=== PATIENT | female | born 1980 | race Caucasian/White ===

== ENCOUNTER 2016-12-03 21:15 | Outpatient (CLI) | payer MEDICAID ==
[~2016-12-03] VITALS: Ht 152.4 cm; Wt 47.1 kg
[~2016-12-03 21:15] MED LIST: FERR-55 PO; PREN-39 PO; PREN1TAB31 PO
[2016-12-03 21:33] VITALS: BP 102/58; PULSE 82; Ht 152.4 cm; Wt 47.1 kg
[2016-12-03 22:42] LABS: ADD UMIC NO; UR ASCORBIC ACID NEGATIVE (NEGATIVE); UR BILIRUBIN (Dip) NEGATIVE (NEGATIVE); UR BLOOD (Dip) NEGATIVE (NEGATIVE); UR CLARITY CLEAR (CLEAR); UR COLOR STRAW (YELLOW); UR GLUCOSE (Dip) NEGATIVE (NEGATIVE); UR KETONES (Dip) 2+ mg/dL (NEGATIVE); UR LEUKOCYTE ESTERASE (Dip) NEGATIVE Leu/ul (NEGATIVE); UR NITRITE (Dip) NEGATIVE (NEGATIVE); UR SPECIFIC GRAVITY (Dip) 1.005 (1.003-1.030); UR TOTAL PROTEIN (Dip) NEGATIVE (NEGATIVE); UR UROBILINOGEN (Dip) NEGATIVE (NEGATIVE)
[2016-12-03] MEDS ORDERED: ACETAMINOPHEN 500 MG TAB PO ONE (23:03)
[2016-12-03 23:20] LABS: BASOPHILS % 0.3 % (0.0-2.0); EOSINOPHILS % 0.3 % (0.0-7.0); HEMATOCRIT 34.3 % (37.0-47.0); HEMOGLOBIN 12.4 g/dl (12.0-16.0); LYMPHOCYTES # 2.2 10^3/ul (0.8-2.9); LYMPHOCYTES % 21.3 % (15.0-51.0); MEAN CORPUSCULAR HEMOGLOBIN 32.9 pg (29.0-33.0); MEAN CORPUSCULAR HGB CONC 36.2 g/dl (32.0-37.0); MEAN PLATELET VOLUME 9.8 fl (7.4-10.4); MONOCYTE # 0.6 10^3/ul (0.3-0.9); MONOCYTES % 5.8 % (0.0-11.0); NEUTROPHIL # 7.3 10^3/ul (1.6-7.5); NEUTROPHILS % 71.5 % (39.0-77.0); PLATELET COUNT 246 10^3/UL (140-415); RED BLOOD COUNT 3.77 10^6/ul (4.20-5.40); RED CELL DISTRIBUTION WIDTH 12.6 % (11.5-14.5); WHITE BLOOD COUNT 10.2 10^3/ul (4.8-10.8)
[2016-12-03 23:47] LABS: ALBUMIN 3.2 g/dl (3.3-4.9); ALBUMIN/GLOBULIN RATIO 0.86; BILIRUBIN,INDIRECT 0.1 mg/dl (0-1.1); BILIRUBIN,TOTAL 0.1 mg/dl (0.2-1.3); CALCIUM 8.7 mg/dl (8.4-10.2); CREATININE 0.42 mg/dl (0.44-1.00); POTASSIUM 3.6 mmol/L (3.5-5.1); TOTAL PROTEIN 6.9 g/dl (6.1-8.1)
--- NOTE | 2016-12-04 00:14 | RADRPT ---
PROCEDURE: Ultrasound OB placenta CLINICAL INDICATION: Abdominal pain. TECHNIQUE: Sonographic evaluation of the gravid uterus was performed. Transabdominal imaging of th e gravid uterus was performed. COMPARISON: Ultrasound dated 10/01/2016. FINDINGS: Single live intrauterine with cardiac activity is identified with a heart rate of 144 beats per minute. There is a cephalic presentation and a an anterior, grade 1 placenta. There is no evidence of placental abruption or placenta previa. IMPRESSION: 1. Single viable intrauterine gestation with normal sonographic appearance of the placenta. RPTAT: HLBP .Fransico Mallory MD, Date Time Electronically viewed and signed by .Fransico Mallory MD, MD on 12/04/2016 00:14 .P/
--- NOTE | 2016-12-04 00:17 | RADRPT ---
PROCEDURE: US abdomen right upper quadrant CLINICAL INDICATION: Right upper quadrant abdominal pain. TECHNIQUE: Joe scale and color Doppler ultrasound of the right upper quadrant of the abdomen was p erformed. COMPARISON: None available. FINDINGS: Pancreas: Obscured due to overlying bowel gas. Liver: Normal in size and echogenicity with no focal hepatic lesion. Hepatopedal flow in the main po rtal vein. Gallbladder: No cholelithiasis, gallbladder wall thickening, or pericholecystic fluid. Common bile duct: 4.1 mm in diameter. Right Kidney: 9.4 cm in length. Mild hydronephrosis. No nephrolithiasis or renal mass. Ascites: None. IMPRESSION: 1. Mild right hydronephrosis with no nephrolithiasis or definitive source of obstruction. This may be related to the patient's gravid state. RPTAT: HLBP .Fransico Mallory MD, Date Time Electronically viewed and signed by .Fransico Mallory MD, on 12/04/2016 00:16 .P/
--- NOTE | 2016-12-04 01:06 | TRIAGE ---
OB Triage Datetime Report Generated by CPN: 12/04/2016 01:06 Datetime: 12/04/2016 00:44 Labor Evaluation Frequency: X2 Monitor Mode: External Duration (sec)2399: 60-100 Quality: Mild Pattern: Normal: <= 5 Contractions in 10 Minutes Resting Tone [place]: Relaxed Heart Rate FHR Baseline Rate: 130 Monitor Mode: External US FHR Baseline Changes: No Baseline Change Variability: Moderate 6-25 bpm Accelerations: 15X15 Decelerations: None Category: Category I Datetime: 12/03/2016 23:47 Pain Assessment Pain Scale: 4 Pain Presence: Intermittent Pain Location: Abdomen Datetime: 12/03/2016 23:30 Labor Evaluation Frequency: occasional Monitor Mode: External Duration (sec)2399: 60-100 Quality: Mild Pattern: Normal: <= 5 Contractions in 10 Minutes Resting Tone [place]: Relaxed Heart Rate FHR Baseline Rate: 135 Monitor Mode: External US FHR Baseline Changes: No Baseline Change Variability: Moderate 6-25 bpm Accelerations: 15X15 Decelerations: None Category: Category I Datetime: 12/03/2016 22:54 Pain Assessment Pain Scale: 7 Pain Presence: Intermittent Pain Type: Pressure Pain Location: Abdomen Datetime: 12/03/2016 22:51 Monitor Mode: Palpation Resting Tone [place]: Relaxed Contraction Comments: ABD SOFT WITH PALPATION Datetime: 12/03/2016 22:30 Labor Evaluation Frequency: irregular Monitor Mode: External Duration (sec)2399: 50-80 Quality: Mild Pattern: Normal: <= 5 Contractions in 10 Minutes Resting Tone [place]: Relaxed Heart Rate FHR Baseline Rate: 140 Monitor Mode: External US FHR Baseline Changes: No Baseline Change Variability: Moderate 6-25 bpm Accelerations: 15X15 Decelerations: Variable Category: Category II Datetime: 12/03/2016 22:15 Monitor Mode: Palpation Resting Tone [place]: Relaxed Contraction Comments: ABD SOFT AND NON TENDER Datetime: 12/03/2016 21:25 Assessment Type: Triage Maternal Assessment Level of Consciousness: Fully Conscious Headache: Denies Blurred Vision: No Respiratory Effort: Unlabored; Regular Rhythm; Equal Expansion Nausea/Vomiting: Denies RUQ Epigastric Pain: Denies Facial Edema: None Fall Risk Assessment History of Falling: (0) No Secondary Diagnosis: (0) No Ambulatory Aid: (0) Bedrest/Nurse Assist IV Therapy: (0) No Gait: (0) Normal/Bedrest/Immobile Mental Status: (0) Oriented to Own Ability Fall Score: 0 Fall Risk Score Definition: No Risk: No action required Datetime: 12/03/2016 21:24 EGA: 30.1 Datetime: 12/03/2016 21:22 Temperature Route: Oral Pain Assessment Pain Scale: 7 Pain Presence: Intermittent Pain Type: Cramping; Pressure Pain Location: Abdomen Pain Goal: 4 Pain Relief Measures: Comfort Measures Datetime: 12/03/2016 21:05 Stage of : OB Triage Time of Arrival: 12/03/2016 21:05 Arrived By: Ambulatory Arrived From: Home Chief Complaint: UC'S SINCE 1999, ABDOMINAL PAIN Movement: Present Contractions: Irregular Time Contractions Began: 12/03/2016 20:00 Rupture of Membranes: Denies Vaginal Bleeding: None Vaginal Discharge: Denies Recent Sexual Intercouse: Denies Abdominal Trauma: Not Applicable Patient Complaints: Contractions Time Provider Notified: 12/03/2016 22:21 Provider Notified: LOUANN Initial Plan: VS, EFM, UA, PO HYDRATION, TYLENOL 1000 MG PO, CBC, CMP, ABDOMINAL US, PLACENTA US
--- NOTE | 2016-12-04 03:47 | PN ---
Triage Information Date/Time December 03 2016 Patient here presents with complaint of suprapubic pain as well as epigastric pain and uterine contractions. Reason for visit: Uterine contractions Weeks of Gestation 30 weeks gestation /Para 3 para 2 Diabetes: none Hypertention: none Additional information 36-year-old with IUP at 30 weeks presented with complaint of suprapubic pain as well as epigastric pain. Patient denies any leaking of fluid, vaginal bleeding or decreased movement Objective Vital Signs Date Time Temp Pulse Resp B/P Pulse Ox O2 Delivery O2 Flow Rate FiO2 12/03/16 21:33 98.1 82 102/58 Room Air Heart Rate: 120's Contractions: 6-10 Minutes Apart Results/Medications Result Diagram: 12/03/16231312/03/162313 Results 24 hrs Laboratory Tests Test 12/03/16 22:15 12/03/16 23:14 Urine Color STRAW Urine Clarity CLEAR Urine pH 6.0 Urine Specific [place] 1.005 Urine Ketones 2+ H Urine Nitrite NEGATIVE Urine Bilirubin NEGATIVE Urine Urobilinogen NEGATIVE Urine Leukocyte Esterase NEGATIVE Urine Hemoglobin NEGATIVE Urine Glucose NEGATIVE Urine Total Protein NEGATIVE White Blood Count 10.2 Red Blood Count 3.77 L Hemoglobin 12.4 Hematocrit 34.3 L Mean Corpuscular Volume 91.0 Mean Corpuscular Hemoglobin 32.9 Mean Corpuscular Hemoglobin Concent 36.2 Red Cell Distribution Width 12.6 Platelet Count 246 Mean Platelet Volume 9.8 Neutrophils % 71.5 Lymphocytes % 21.3 Monocytes % 5.8 Eosinophils % 0.3 Basophils % 0.3 Nucleated Red Blood Cells % 0.0 Neutrophils # 7.3 Lymphocytes # 2.2 Monocytes # 0.6 Eosinophils # 0.0 Basophils # 0.0 Nucleated Red Blood Cells # 0.0 Sodium Level 135 Potassium Level 3.6 Chloride Level 108 Carbon Dioxide Level 21 Anion Gap 10 Blood Urea Nitrogen 6 L Creatinine 0.42 L Glucose Level 83 Calcium Level 8.7 Total Bilirubin 0.1 L Direct Bilirubin 0.00 Indirect Bilirubin 0.1 Aspartate Amino Transf (AST/SGOT) 20 Alanine Aminotransferase (ALT/SGPT) 26 Alkaline Phosphatase 132 H Total Protein 6.9 Albumin 3.2 L Globulin 3.70 H Albumin/Globulin Ratio 0.86 Imaging Results PROCEDURE: US abdomen right upper quadrant CLINICAL INDICATION: Right upper quadrant abdominal pain. TECHNIQUE: Joe scale and color Doppler ultrasound of the right upper quadrant of the abdomen was performed. COMPARISON: None available. FINDINGS: Pancreas: Obscured due to overlying bowel gas. Liver: Normal in size and echogenicity with no focal hepatic lesion. Hepatopedal flow in the main portal vein. Gallbladder: No cholelithiasis, gallbladder wall thickening, or pericholecystic fluid. Common bile duct: 4.1 mm in diameter. Right Kidney: 9.4 cm in length. Mild hydronephrosis. No nephrolithiasis or renal mass. Ascites: None. IMPRESSION: 1. Mild right hydronephrosis with no nephrolithiasis or definitive source of obstruction. This may be related to the patient's gravid state. RPTAT: HLBP ROCEDURE: Ultrasound OB placenta CLINICAL INDICATION: Abdominal pain. TECHNIQUE: Sonographic evaluation of the gravid uterus was performed. Transabdominal imaging of the gravid uterus was performed. COMPARISON: Ultrasound dated 10/01/2016. FINDINGS: Single live intrauterine with cardiac activity is identified with a heart rate of 144 beats per minute. There is a cephalic presentation and a an anterior, grade 1 placenta. There is no evidence of placental abruption or placenta previa. IMPRESSION: 1. Single viable intrauterine gestation with normal sonographic appearance of the placenta. RPTAT: HLBP Disposition: Discharge Assessment/Plan IUP at 38 weeks Abdominal pain contractions noted that resulted hydration urine clean with no evidence of UTI Abdominal ultrasound unremarkable Contractions resolved after p.o. hydration Patient felt improvement of her symptoms NST category 1 Strict labor precautions and kick count and adequate hydration and follow-up with her OB office in 24-48 hours discussed with the patient Patient verbalized understanding MARGARITA LEW MD Dec 04, 2016 03:47
== END 2016-12-04 01:26 | disposition home or self-care (01) ==
LOC: OBT 21:15 → L-D 21:16 → OBT 12-04 01:26
PROVIDERS: ATTEND Obstetrics & Gynecology
DX: O62.9 Abnormality of forces of labor, unspecified (principal); O60.03 Preterm labor without delivery, third trimester; O26.893 Other specified pregnancy related conditions, third trimester; N13.2 Hydronephrosis with renal and ureteral calculous obstruction; Z3A.38 38 weeks gestation of pregnancy
CPT/HCPCS: 76705; 76815; 80053; 81003; 85025; Z7500; Z7610; G0463

== ENCOUNTER 2017-01-12 12:42 | Outpatient (CLI) | payer MEDICAID ==
[~2017-01-12] VITALS: Ht 144.8 cm; Wt 48.1 kg
[2017-01-12 13:36] VITALS: Ht 144.8 cm; Wt 48.1 kg
[2017-01-12 13:37] VITALS: BP 105/62; PULSE 66; RESP 20
[2017-01-12] MEDS ORDERED: URSO300C21 PO (14:37)
--- NOTE | 2017-01-12 15:14 | RADRPT ---
PROCEDURE: US OB biophysical profile. CLINICAL INDICATION: decreased movements, abdominal pain TECHNIQUE: Multiple sonographic images of the pelvis were obtained. The images were reviewed on a PACS workstation. COMPARISON: US PELVIS 12/03/2016 FINDINGS: There is a single viable intrauterine gestation. Cardiac activity is present with 130 beats per min pilot point. There is a vertex presentation. The placenta is anterior. There is no evidence of placental abruption. There is a normal amount of amniotic fluid with an SHANICE = 12.5 cm. Biophysical profile: movement 2/2 tone 2/2. breathing 2/2 SHANICE 2/2 Total 09/30 RPTAT: AA . IMPRESSION: Normal biophysical profile. . .Bryce Vance MD, MD Date Time Electronically viewed and signed by .Bryce Vance MD, MD on 01/12/2017 15:14 .S/
--- NOTE | 2017-01-12 16:27 | QN ---
Documentation Comment at 37 weeks sent for prutities vss nst reacitshakila [place] wnl a.p iup 37 weeks r/o cholestasis dc home nst is 3 days DANYA BELL MD Jan 12, 2017 16:27
== END 2017-01-12 16:00 | disposition home or self-care (01) ==
LOC: OBT 12:42 → OBG 12:44 → OBT 16:00
PROVIDERS: ATTEND Obstetrics & Gynecology
DX: O26.893 Other specified pregnancy related conditions, third trimester (principal); O36.8130 Decreased fetal movements, third trimester, not applicable or unspecified; Z3A.37 37 weeks gestation of pregnancy
CPT/HCPCS: 76818; Z7500; G0463

== ENCOUNTER 2017-01-19 20:13 | Outpatient (CLI) | END 2017-01-20 04:35 | disposition home or self-care (01) ==

== ENCOUNTER 2017-01-20 05:00 | Inpatient (IN) | payer MEDICAID ==
[~2017-01-20] VITALS: Ht 143.5 cm; Wt 48.0 kg
[~2017-01-20 05:00] MED LIST changes: +URSO300C21 PO
[2017-01-20 05:27] VITALS: Ht 143.5 cm; Wt 48.0 kg
[2017-01-20] MEDS ORDERED: CARBOPROST 250 MCG INJ IM PRN (05:30)
[2017-01-20] MEDS ORDERED: METHYLERGONOVINE 0.2 MG INJ IM PRN (05:30)
[2017-01-20] MEDS ORDERED: OXYTOCIN 30 UNITS/LR 500 ML IV PRN (05:30)
[2017-01-20] MEDS ORDERED: OXYTOCIN 30 UNITS/LR 500 ML IV SCH ×2 (05:30)
[2017-01-20] MEDS ORDERED: MISOPROSTOL 200 MCG TAB PR PRN (05:30)
[2017-01-20] MEDS ORDERED: HYDROCODONE/APAP (5/325) TAB PO PRN (05:30)
[2017-01-20] MEDS ORDERED: LACTATED RINGER'S 1,000 ML IV PRN (05:30)
[2017-01-20] MEDS ORDERED: LIDOCAINE 1% (MPF) 30 ML INJ INJ PRN (05:30)
[2017-01-20] MEDS ORDERED: IBUPROFEN 600 MG TAB PO PRN (05:30)
--- NOTE | 2017-01-20 05:40 | HP ---
Date/Time of Note Date/Time of Note DATE: 01/20/17 TIME: 05:31 OB - History Hx of Present Free Text/Dictation 36 Year-old with SIUP at 36 6/7 weeks and cholestasis presents with a chief complaint of ucs. She has been receiving her care with Dr. Costa. She states good movement. She denies nausea, vomiting, shortness of breath, chest pain, and abdominal pain between contractions, headache, visual changes, vaginal bleeding or LOF. Chief Complaint: ucs Estimated Due Date: Feb 11, 2017 : 3 Para: 2 Spontaneous : 0 Therapeutic : 0 Care: Good Care Ultrasounds: Normal mid trimester US Obstetrical Complications: None Medical Complications: Other (cholestasis) Other Concerns: She had variable decel during triage observation which resolved Past Family/Social History * Past Medical, Surgical, Family and Obstetric Histories reviewed from chart. Blood Type: O+ Rubella: immune RPR/VDRL: Negative GBS Status: Negative HBsAG: Negative OB Admission Exam Physical Exam HEENT: WNL Heart: Rhythm Normal Lungs: Clear Abdomen: WNL Cervical Dilatation: 2cm Effacement: 50% Station: -2 Membranes: Intact Heart Rate: 140's Accelerations: Accelerations Present Decelerations: No Decelerations Varibility: Moderate Contractions on Admission: < 5 Minutes Apart Intensity: Moderate OB Assessment/Plan Other plan: 36 Year-old with cholestasis and SIUP at 36 6/7 weeks in early labor. - FHR: No sign of metabolic acidosis- Category I - Continious EFM, toco - CBC, blood type and screen, CMP - Analgesia options with R/B/A discussed in detail with patient - Epidural per patient request - Please see the orders - O+/Rubella: Immune/GBS negative Admission, procedures, expectations, risks and possible complications have been discussed in detail with the patient. Risk of vaginal delivery including but not limited to bleeding, infection, cervical laceration, placental retention, injury to fetus, blood transfusion, blood transfusion related infection, risk of anesthesia, adhesion, cervical laceration, episiotomy/laceration, possible delivery with risk of bleeding, infection, injury to other organs ( bowel, bladder, ureter, vessels, nerves), injury to fetus, blood transfusion, blood transfusion related infection, risk of anesthesia, scar and hernia formation, needs for future , removal of uterus or any other indicated surgery discussed with the patient. She expressed understanding and repeats the risks. All of her questions were answered; all appropriate consents will be signed. PHYSICIAN'S VERIFICATION OF INFORMED CONSENT: The patient was counseled regarding the procedure, its indications, risks, potential complications and alternatives and any questions were answered. Consent was obtained. PLANNED PROCEDURE/TREATMENT: Vaginal delivery with possible vacuum/forceps delivery episiotomy, repair of laceration possible delivery PHYSICIAN'S VERIFICATION OF INFORMED CONSENT FOR BLOOD TRANSFUSION: There is a reasonable possibility that blood transfusion will be necessary as a result of the patient's procedure. I have discussed the following with the patient/patient's legal financial foundations representative: An explanation of the benefits and risks of the transfusion of blood or blood products and the possible alternatives. Al questions have been answered to the patient's/patients legal representatives satisfaction. INFORMED CONSENT: The patient has been informed of: - The nature of the proposed care, treatment, services, medic- Potential benefits, risks or side effects, including potential problems related to recuperation. - The likelihood of achieving care treatment and service goals. - Reasonable alternatives to the proposed care, treatment and service. - The relevant risks, benefits and side effects related to alternatives, including the possible results of not receiving care, treatment and services. - When indicated, any limitations on the confidentiality of information learned from or about the patient. - If appropriate, the risks, benefits and alternatives of the drugs to be used for sedation/analgesia including moderate sedation. - If appropriate, patient has been provided information on the risks, benefits and alternatives to the transfusion of blood and/or blood products. STEVE GARDINER Jan 20, 2017 05:40
[2017-01-20] MEDS: LACTATED RINGER'S 1,000 ML IV SCH ×3 (06:11→20:18)
[2017-01-20] MEDS: OXYTOCIN 30 UNITS/LR 500 ML IV SCH (06:13)
[2017-01-20 06:42] LABS: BASOPHILS % 0.1 % (0.0-2.0); EOSINOPHILS % 0.1 % (0.0-7.0); HEMATOCRIT 31.4 % (37.0-47.0); HEMOGLOBIN 10.9 g/dl (12.0-16.0); LYMPHOCYTES # 1.9 10^3/ul (0.8-2.9); LYMPHOCYTES % 25.8 % (15.0-51.0); MEAN CORPUSCULAR HEMOGLOBIN 31.2 pg (29.0-33.0); MEAN CORPUSCULAR HGB CONC 34.7 g/dl (32.0-37.0); MEAN PLATELET VOLUME 11.1 fl (7.4-10.4); MONOCYTE # 0.4 10^3/ul (0.3-0.9); MONOCYTES % 4.9 % (0.0-11.0); NEUTROPHIL # 4.9 10^3/ul (1.6-7.5); NEUTROPHILS % 68.5 % (39.0-77.0); PLATELET COUNT 218 10^3/UL (140-415); RED BLOOD COUNT 3.49 10^6/ul (4.20-5.40); RED CELL DISTRIBUTION WIDTH 12.8 % (11.5-14.5); WHITE BLOOD COUNT 7.2 10^3/ul (4.8-10.8)
[2017-01-20 07:10] LABS: INR 0.97; PROTIME 12.9 Sec (12.2-14.2)
[2017-01-20 07:11] LABS: PARTIAL THROMBOPLASTIN TIME 30.2 Sec (25.0-35.0)
[2017-01-20 07:13] LABS: ALANINE AMINOTRANSFERASE 20 IU/L (13-69); ALBUMIN 2.7 g/dl (3.3-4.9); ALKALINE PHOSPHATASE 202 IU/L (42-121); ANION GAP 11 (8-16); ASPARTATE AMINO TRANSFERASE 18 IU/L (15-46); BILIRUBIN,INDIRECT 0.3 mg/dl (0-1.1); BILIRUBIN,TOTAL 0.3 mg/dl (0.2-1.3); BLOOD UREA NITROGEN 5 mg/dl (7-20); CALCIUM 8.8 mg/dl (8.4-10.2); CARBON DIOXIDE 23 mmol/L (21-31); CHLORIDE 109 mmol/L (97-110); CREATININE 0.42 mg/dl (0.44-1.00); GLUCOSE 79 mg/dl (70-220); POTASSIUM 3.8 mmol/L (3.5-5.1); SODIUM 139 mmol/L (135-144); TOTAL PROTEIN 5.7 g/dl (6.1-8.1)
[2017-01-20] MEDS: URSODIOL 300 MG CAP PO SCH ×2 (09:25→18:11)
--- NOTE | 2017-01-20 09:27 | PN ---
Date/Time of Note Date/Time of Note DATE: 01/20/17 TIME: 09:25 OB Subjective Subjective Subjective Patient with no or minimal complain of the uterine contractions OB Objective Objective Objective Patient was started by on-call physician on Pitocin at 36 and 6 weeks gestation for cholestasis General physical exam is unchanged cervix is long and 1 OB Assessment/Plan Other Assessment: Cholestasis 36 weeks and 6 days gestation Other plan: Will induce labor at 37 weeks SHARLA BARRAGNA MD Jan 20, 2017 09:27
[2017-01-21] MEDS ORDERED: DINOPROSTONE 10 MG VAG SUPP VAG ONE
[2017-01-21] MEDS: URSODIOL 300 MG CAP PO SCH ×3 (01:56→16:09)
[2017-01-21] MEDS: LACTATED RINGER'S 1,000 ML IV SCH ×3 (04:22→18:30)
[2017-01-21] MEDS: BUTORPHANOL 2 MG INJ IV PRN ×2 (06:35→16:09)
[2017-01-21] MEDS ORDERED: CEFAZOLIN 2 GM/50 ML (PMX) 50 ML IVPB ONE (17:49)
--- NOTE | 2017-01-21 17:56 | PN ---
Date/Time of Note Date/Time of Note DATE: 01/21/17 TIME: 17:52 OB Subjective Subjective Subjective patient has epidural C/O body itching OB Objective Objective Objective general P/E is unchanged Cx: 50% 1 cm -3 OB Assessment/Plan Reason for admission: induction of labor Other Assessment: 37+ weeks gestation Other plan: will probably do ROM SHARLA BARRAGAN MD Jan 21, 2017 17:56
[2017-01-21] MEDS: OXYTOCIN 30 UNITS/LR 500 ML IV SCH (20:31)
[2017-01-21] MEDS ORDERED: CARBOPROST 250 MCG INJ IM PRN (22:30)
[2017-01-21] MEDS ORDERED: LANOLIN 7 GM TUBE TOP PRN (22:30)
[2017-01-21] MEDS ORDERED: MISOPROSTOL 200 MCG TAB PR PRN (22:30)
[2017-01-21] MEDS ORDERED: ZOLPIDEM 5 MG TAB PO PRN (22:30)
[2017-01-21] MEDS ORDERED: ACETAMINOPHEN 325 MG TAB PO PRN (22:30)
[2017-01-21] MEDS ORDERED: morphine 4 MG/ML VIAL IV PRN (22:30)
[2017-01-21] MEDS ORDERED: DIPHENHYDRAMINE 25 MG CAP PO PRN (22:30)
[2017-01-21] MEDS ORDERED: ONDANSETRON 4 MG INJ IV PRN (22:30)
[2017-01-21] MEDS ORDERED: OXYTOCIN 30 UNITS/LR 500 ML IV PRN (22:30)
--- NOTE | 2017-01-21 22:30 | LDN ---
Date/Time of Note Date/Time of Note DATE: 01/21/17 TIME: 22:22 Delivery Summary 01/21/2017 I was caled to the room due to BOA.when arrived to the room the baby was out at the bed. there was about 500 cc blood in the chalks.. Cord was clamped and cut and the baby was placed on the mother;s abdomen. 9 and 9. Cord blood obtained. Placenta delivered complete. Second degree perineal laceration and first degree laceration about the urethea noted that repaired using 2-0 and 3-0 chromic and vicryl. There was a bleeding area at above the urethra that controlled using figure of eight, Assurance about intactness of the bladder made by cathaterizing of the bladder using red robbin cathater., Clear urine noted. Hemostasis was complete at the end of the delivery Weeks of Gestation 36 weeks and 6 days Placenta Delivered: Spontaneously Perineal laceration: 2 Laceration repair: second degree perineal laceration and first degree at the top of the vulva above the urethra noted, repaired using 2-0 and 3-0 chromic red robbin cathater placed and clear urine noted. Anesthesia type: None Estimated blood loss: 500 Sponge & Needle done & correct: Yes All needle counts correct: Yes Any foreign bodies felt in the: No Problems: MARGARITA LEW MD Jan 21, 2017 22:30
[2017-01-21] MEDS: IBUPROFEN 600 MG TAB PO SCH (23:14)
[2017-01-21 23:50] VITALS: BP 101/70; PULSE 68; RESP 18
[2017-01-22 00:20] VITALS: BP 106/56; PULSE 69; RESP 18
[2017-01-22] MEDS: HYDROCODONE/APAP (5/325) TAB PO PRN ×3 (02:40→16:43)
[2017-01-22] MEDS: WITCH HAZEL/GLYCERIN PAD PR PRN (02:41)
[2017-01-22] MEDS: LACTATED RINGER'S 1,000 ML IV* SCH ×2 (02:54→12:53)
[2017-01-22 04:10] VITALS: BP 101/56; PULSE 72; RESP 18
[2017-01-22] MEDS: IBUPROFEN 600 MG TAB PO SCH ×4 (06:06→23:29)
[2017-01-22 08:15] VITALS: BP 97/53; PULSE 71; RESP 18
[2017-01-22] MEDS: FERROUS SULFATE (EC) 325 MG TAB PO SCH (09:29)
[2017-01-22] MEDS: SENNA/DOCUSATE NA (8.6MG/50MG) TAB PO SCH ×2 (09:29→20:58)
[2017-01-22] MEDS: URSODIOL 300 MG CAP PO SCH ×2 (09:29→20:58)
[2017-01-22 09:42] LABS: BASOPHILS % 0.2 % (0.0-2.0); EOSINOPHILS % 0.2 % (0.0-7.0); HEMATOCRIT 30.3 % (37.0-47.0); HEMOGLOBIN 10.3 g/dl (12.0-16.0); LYMPHOCYTES # 1.7 10^3/ul (0.8-2.9); MEAN CORPUSCULAR HEMOGLOBIN 30.6 pg (29.0-33.0); MEAN CORPUSCULAR VOLUME 89.9 fl (82.0-101.0); MEAN PLATELET VOLUME 10.8 fl (7.4-10.4); MONOCYTE # 0.9 10^3/ul (0.3-0.9); MONOCYTES % 6.9 % (0.0-11.0); NEUTROPHIL # 9.7 10^3/ul (1.6-7.5); NEUTROPHILS % 78.3 % (39.0-77.0); PLATELET COUNT 221 10^3/UL (140-415); RED BLOOD COUNT 3.37 10^6/ul (4.20-5.40); RED CELL DISTRIBUTION WIDTH 13.2 % (11.5-14.5); WHITE BLOOD COUNT 12.4 10^3/ul (4.8-10.8)
[2017-01-22 12:20] VITALS: BP 95/56; PULSE 75; RESP 16
[2017-01-22 15:45] VITALS: BP 91/50; PULSE 80; RESP 16
[2017-01-22 19:40] VITALS: BP 95/57; PULSE 65; RESP 17
[2017-01-23 04:10] VITALS: BP 109/57; PULSE 74; RESP 19
[2017-01-23] MEDS: IBUPROFEN 600 MG TAB PO SCH ×3 (05:40→17:36)
[2017-01-23 08:39] VITALS: BP 94/53; PULSE 66; RESP 19
[2017-01-23] MEDS: FERROUS SULFATE (EC) 325 MG TAB PO SCH (08:39)
[2017-01-23] MEDS: URSODIOL 300 MG CAP PO SCH (08:39)
[2017-01-23] MEDS: SENNA/DOCUSATE NA (8.6MG/50MG) TAB PO SCH (08:39)
[2017-01-23] MEDS: HYDROCODONE/APAP (5/325) TAB PO PRN (08:39)
[2017-01-23] MEDS ORDERED: VARICELLA VACCINE LIVE/PF 1,350 UNIT/0.5 ML ML SC* ONE (09:00)
[2017-01-23] MEDS ORDERED: DIPHTH/TET/ACEL PERTUSS (ADULT) 0.5 ML VIAL IM* ONE (09:00)
[2017-01-23] MEDS ORDERED: MEASLES,MUMPS,RUBELLA VACCINE INJ SC* ONE (09:00)
--- NOTE | 2017-01-23 15:16 | DS ---
Date/Time of Note Date/Time of Note Late entry DATE:01/22/2017 Obstetrical Discharge Record Final Diagnosis Final Diagnosis: Term delivered Vaginal Delivery Obstetrical Delivery: Spontaneous, Laceration, Repaired Complications Augmentation: Yes Induction: Yes Condition on Discharge Physical Assessment Last Vitals: See nurse's notes Voiding: Yes Bowel Movement: Yes Breast: Soft, non-tender, Filling Fundus: Firm Abdomen and Incision: Abdomen is soft fundus firm at the U Episiotomy: Perineum is healing Calf Tenderness: No Patient Condition: Good SHARLA BARRAGAN MD Jan 23, 2017 15:16
[2017-01-23] MEDS ORDERED: IBUP-1542 PO (15:18)
--- NOTE | 2017-01-23 15:18 | PD.PPDC ---
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
[2017-01-23 16:30] VITALS: BP 99/59; PULSE 65; RESP 20
[2017-01-23] MEDS: WITCH HAZEL/GLYCERIN PAD PR PRN (17:37)
== END 2017-01-23 18:58 | disposition home or self-care (01) | DRG 775 ==
LOC: L-D 05:00 → PP1 01-22 00:14
PROVIDERS: ADMIT Obstetrics & Gynecology; ATTEND Obstetrics & Gynecology
PROC: 10E0XZZ Delivery of Products of Conception, External Approach (ICD-10-PCS; principal; 2017-01-21)
PROC: 0KQM0ZZ Repair Perineum Muscle, Open Approach (ICD-10-PCS; 2017-01-21)
PROC: 3E033VJ Introduction of Other Hormone into Peripheral Vein, Percutaneous Approach (ICD-10-PCS; 2017-01-21)
DX: O60.14X0 Preterm labor third trimester with preterm delivery third trimester, not applicable or unspecified (principal); O70.1 Second degree perineal laceration during delivery; Z3A.36 36 weeks gestation of pregnancy; Z37.0 Single live birth
CPT/HCPCS: 80053; 85025; 85610; 85730; 86592; 86900; 86901; 87340; 90715; 90716; J0595; J0690; J2590; J7120